=== PATIENT | female | born 1980 ===

== ENCOUNTER 2021-09-06 05:28 | Inpatient (IN) | payer BC ==
[2021-09-06] MEDS ORDERED: Carboprost Tromethamine 250 MCG/1 ML Amp IM PRN (06:34)
[2021-09-06] MEDS ORDERED: Lidocaine 1% 50 ML MDV INJECT PRN (06:34)
[2021-09-06] MEDS ORDERED: Ondansetron 4 MG/2 ML SDV IVPUSH PRN (06:34)
[2021-09-06] MEDS ORDERED: Sodium Chloride 0.9% 20 ML SDV IV PRN (06:34)
[2021-09-06] MEDS ORDERED: Misoprostol 200 MCG Tab PO PRN (06:34)
[2021-09-06] MEDS ORDERED: Sodium Chloride 0.9% 2.5 ML Syringe FLUSH PRN (06:34)
[2021-09-06] MEDS ORDERED: Methylergonovine 0.2 MG/1 ML Amp IM PRN (06:34)
[2021-09-06] MEDS ORDERED: Butorphanol 1 MG/ML SDV IVPUSH PRN (06:34)
[2021-09-06] MEDS ORDERED: Water For Irrigation,Sterile 1,000 ML Container IRR PRN (06:34)
[2021-09-06] MEDS ORDERED: Sodium Chloride 0.9% 10 ML Syringe FLUSH PRN (06:34)
[2021-09-06] MEDS ORDERED: Tranexamic Acid 1,000 MG in Sodium Chloride 0.9% 100 ML IV PRN (06:34)
[2021-09-06] MEDS ORDERED: Terbutaline 1 MG/ML SDV SUBCUT PRN (06:34)
[2021-09-06] MEDS ORDERED: Oxytocin/0.9 % Sodium Chloride 30 UNIT/500 ML BAG IV SCH ×2 (06:45)
[2021-09-06] MEDS: Lactated Ringers 1,000 ML IV SCH ×3 (07:05→16:03)
[2021-09-06] MEDS ORDERED: ePHEDrine 50 MG/ML SDV IVPUSH PRN ×2 (10:26)
[2021-09-06] MEDS ORDERED: Ropivacaine HCl/PF 400 MG in Premix Bag 1 BAG EPIDUR SCH (10:30)
[2021-09-06] MEDS ORDERED: Lidocaine 2% 5 ML SDV ONE (13:39)
[2021-09-06] MEDS ORDERED: Ibuprofen 400 MG Tab PO PRN (17:19)
[2021-09-06] MEDS ORDERED: Acetaminophen 500 MG Tab PO PRN ×2 (17:19)
[2021-09-06] MEDS ORDERED: Docusate Sodium 100 MG Cap PO PRN (17:19)
[2021-09-06] MEDS ORDERED: oxyCODONE 5 MG Tab PO PRN (17:19)
[2021-09-06] MEDS ORDERED: Bisacodyl 10 MG Supp RECTAL PRN (17:19)
[2021-09-06] MEDS ORDERED: Lanolin 100% Cream 7 GM Tube TOP PRN (17:19)
[2021-09-06] MEDS: Ibuprofen 800 MG Tab PO PRN (18:21)
[2021-09-06] MEDS: Benzocaine/Menthol 20%-0.5% Spray 78 GM Cannister TOP PRN (18:26)
[2021-09-06] MEDS: Witch Hazel Medicated Pads 40/Jar TOP PRN (18:27)
[2021-09-07] MEDS: Ibuprofen 800 MG Tab PO PRN ×3 (04:39→21:36)
[2021-09-07] MEDS: Witch Hazel Medicated Pads 40/Jar TOP PRN (21:35)
[2021-09-07] MEDS: Benzocaine/Menthol 20%-0.5% Spray 78 GM Cannister TOP PRN (21:36)
== END 2021-09-07 21:43 | disposition home or self-care (01) | DRG 560 ==
LOC: MW.OBCHECK 05:28 → MW.OB 05:30 → MW.OBCHECK 06:35 → OBSVTOIN 16:32 → MW.OB 18:45
PROVIDERS: ADMIT Obstetrics & Gynecology; ATTEND Obstetrics & Gynecology
PROC: 10E0XZZ Delivery of Products of Conception, External Approach (ICD-10-PCS; principal; 2021-09-06)
PROC: 10907ZC Drainage of Amniotic Fluid, Therapeutic from Products of Conception, Via Natural or Artificial Opening (ICD-10-PCS; 2021-09-06)
PROC: 0KQM0ZZ Repair Perineum Muscle, Open Approach (ICD-10-PCS; 2021-09-06)
PROC: 3E0R3BZ Introduction of Anesthetic Agent into Spinal Canal, Percutaneous Approach (ICD-10-PCS; 2021-09-06)
PROC: 00HU33Z Insertion of Infusion Device into Spinal Canal, Percutaneous Approach (ICD-10-PCS; 2021-09-06)
DX: O48.0 Post-term pregnancy (principal); Z3A.40 40 weeks gestation of pregnancy; Z37.0 Single live birth; O70.1 Second degree perineal laceration during delivery; Z20.822 Contact with and (suspected) exposure to COVID-19; Z86.16 Personal history of COVID-19
CPT/HCPCS: 36415; 51702; 59025; 59409; 82803; 85014; 85018; 85027; 86592; 86850; 86900; 86901; A9270-GY; J2590; J7120; U0002